=== PATIENT | male | born 1955 | race Caucasian/White ===

== ENCOUNTER 2022-08-25 23:19 | Inpatient (IN) | payer OTHER ==
--- OUTSIDE RECORDS SUMMARY | 2022-08-25 23:23 | XMS REPORT | Continuity of Care Document ---
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 [id number] l .8 2021-10-08 2021-10-08 Outpatient Sudireddy_R VFP VFP [phone] [facility] 05:23:00 05:23:00 [id number] Family Practic e 2021-07-31 2021-07-31 Outpatient Sudireddy_R VFP VFP 415 [id number] [facility] 05:45:00 05:45:00 [id number] Family Practic e 2021-06-12 2021-06-12 Outpatient Sudireddy_R VFP VFP 415 [id number] [facility] 06:36:00 06:36:00 [id number] Family Practic e 2021-05-22 2021-05-22 Fely K Adejumo_K VFP [place] - [id number] 00:00:00 00:00:[facility] [address] [facility]: [id number] Medical - Prac tic OMAR RHODES_EUGENIE_Julia Mosqueda [address] [address] , Ph. 2020-12-20 2020-12-20 Outpatient Adejumo_K VFP VFP [id number] [facility] 11:26:00 11:26:00 [id number] Family Practic e 2020-12-07 2020-12-07 Outpatient Adejumo_K VFP VFP [id number] [facility] 02:30:00 02:30:00 [id number] Family Practic e 2020-11-30 2020-11-30 Outpatient Adejumo_K VFP VFP [id number] [facility] 11:54:00 11:54:00 [id number] Family Practic e 2020-10-26 2020-10-26 Outpatient Adejumo_K VFP VFP [id number] [facility] 06:04:00 06:04:00 [id number] Family Practic e 2020-09-20 2020-09-20 Outpatient Adejumo_K VFP VFP [id number] [place] [id number] 04:07:00 04:07:00 [id number] Family Practic e 2020-08-22 2020-08-22 Outpatient YAYA [facility] [id number] 00:00:00 00:00:00 KAMILA [address]zo[address] [facility] [address] 2020-08-22 2020-08-22 Outpatient YAYA [facility] [id number] 00:00:00 00:00:00 KAMILA [address] 2020-05-19 2020-05-19 Outpatient Adejumo_K VFP VFP [id number] [place] [id number] 01:24:00 01:24:00 [id number] Family Practic e 2020-04-24 2020-04-24 Emergency E CHAUDHARI, FB FB [id number] FB 07:29:00 08:25:00 KERI 2020-02-01 2020-02-01 Appointedson ALMEIDA, [facility] Orthopedics [id number] [place] 14:15:00 14:15:00 t; ANA ALMEIDA, - Sugar Ph Celena [place] 2 POD ans M.DGabbi 2 2020-01-27 2020-01-27 Appointedson ALMEIDA [facility] Orthopedics [id number] [place] 14:15:00 14:15:00 t; ANA ALMEIDA, - Sugar Ph Celena [place] 2 POD ans M.DGabbi 2 2020-01-17 2020-01-17 Outpatient [facility] [id number] Memoria 16:37:32 21:20:00 r [facility] 2020-01-17 2020-01-17 Outpatient nullFlavo [facility] [id number] Memoria 16:37:32 21:20:00 r [facility] 2020-01-17 2020-01-17 Outpatient Erick [id number] 889 10:37:32 15:20:00 Ana 8 2020-01-17 2020-01-17 Outpatient nullFlavo [facility] [id number] Mem[place] 10:37:32 15:20:00 r anjana [place] 2020-01-17 2020-01-17 Outpatient Erick [id number] 10:37:32 15:20:00 Ana 8 2020-01-17 2020-01-17 Outpatient nullFlavo [facility] [id number] [facility] 10:37:32 15:20:00 jeff Wang 2020-01-17 2020-01-17 Leigh ALMEIDA [facility] Orthopedics [id number] [place] 13:00:00 13:00:00 t; ANA ALMEIDA, - Sugar Ph landy PEREZ M.D. [place] 2 POD ans MMarce 2 2019-11-03 2019-11-03 Outpatient VFP [facility] [id number] [facility] 12:49:00 12:49:00 [id number] Family Practic e 2019-11-02 2019-11-02 Abby E VFP [facility] [id number] [facility] 00:00:00 00:00:00 [facility], [facility] [id number] Family PA-C: Medical - Practi c [id number] [facility]_HOU_Suga e [facility] [address], [place] [address] , Ph. 2019-10-28 2019-10-28 [facility] [id number] [place] 13:15:00 13:15:00 t; ANA ALMEIDA, - Sugar Ph Celena Vail 2 POD heydi [place] 2 2019-10-07 2019-10-07 [facility] [id number] [place] 13:45:00 13:45:00 t; PATRIC KOHLI M.D. at [facility] Felipe SPIVEY M.D. [facility] 2019-07-02 2019-07-02 [facility] [id number] [place] 14:15:00 14:15:00 t; VANDANA BRAY, - Sugar Celena Spangler 1 heydi [place] 2018-12-16 2018-12-16 [facility] [id number] [place] 14:45:00 14:45:00 t; VANDANA BRAY, Orthopedic P ankur ROSS M.D. Surgery - heydi [place] [address] 1 2018-10-02 2018-10-02 [facility] [id number] [place] 13:00:00 13:00:00 t; SHIRLEY KLINE Orthopedic Physici VIMAL, [facility] - ans SHIRLEY KLINE [address] 1 2018-08-28 2018-08-28 [facility] ASA, [facility] UTP [id number] [place] 15:00:00 15:00:00 t; VANDANA BRAY Phys ici MATTHEW, M.D. ans M.D. 2018-08-20 2018-08-20 [facility] ASA, UTP UTP [id number] [place] 07:30:00 07:30:00 t; VANDANA BRAY Phys sarika ROSS M.D. ans M.D. 2018-07-20 2018-07-20 [facility] ASA, UTP UTP [id number] [place] 14:30:00 14:30:00 t; VANDANA BRAY Phys ici MATTHEW, M.D. ans M.D. 2018-02-16 2018-02-16 [facility] ASA, UTP UTP [id number] [place] 14:45:00 14:45:00 t; VANDANA BRAY Phys ici MATTHEW, M.D. ans M.D. 2017-10-28 2017-10-28 [facility] ASA, UTP UTP [id number] [place] 15:15:00 15:15:00 t; VANDANA BRAY Phys ici MATTHEW, M.D. ans M.D. 2017-04-15 2017-04-15 [facility] LAVERNE, [facility] UTP [id number] [place] 15:30:00 15:30:00 t; ALONSO GALLOWAY D.O. Physici heydi GUPTA D.OGabbi 2017-03-19 2017-03-19 [facility] ASA, UTP UTP [id number] [place] 15:45:00 15:45:00 t; VANDANA BRAY Phys ici MATTHEW, M.D. ans M.DGabbi 2017-01-15 2017-01-15 [facility] ASA, UTP UTP [id number] [place] 14:00:00 14:00:00 t; VANDANA BRAY Phys sarika ROSS M.D. ans M.DGabbi 2016-09-18 2016-09-18 [facility] SONA, [facility] UTP [id number] [place] 14:00:00 14:00:00 t; Hilda TREVIÑO i, M.D. ans ROBERT, M.D. 2014-08-08 2014-08-08 med nullFlavo Brooke [id number] Memoria 13:45:00 13:45:00 records r doris Collado-41f0mariaelena yeung MD, AGUS [phone] [facility] b0faff 2014-08-08 2014-08-08 med nullFlavo Brooke [id number] Memoria 13:45:00 13:45:00 records doris Thomas-41f0mariaelena yeung MD, AGUS [phone] [facility] b0faff 2014-08-08 2014-08-08 Outpatient Brooke Brooke [id number] eClinic 08:45:00 08:45:00 Tobias Collado al Works MD, AGUS [place], [place] 2014-08-08 2014-08-08 Outpatient Brooke Brooke [id number] eClinic 08:45:00 08:45:00 Tobias Collado al Works MD, AGUS [place], [place] 2014-05-30 2014-05-30 follow up nullFlavo Brooke de21c5 6d-b [facility] 21:00:00 21:00:00 Len Thomas-4da4Eliza yeung MD, AGUS [id number] [facility] 6da1cc 2014-05-30 2014-05-30 follow up nullFlavo Brooke [id number] eb-7 Memoria 21:00:00 21:00:00 kristi Thomas4de4Eliza yeung MD, PA garcia-e631ec [facility] [id number] 9723-07-07 2014-05-30 follow up nullFlavo Brooke de21c5 6d-b Memoria 21:00:00 21:00:00 Len Thomas-4da4Eliza yeung MD, PA [id number] [facility] 6da1cc 2014-05-30 2014-05-30 follow up nullFlavo Brooke 1964c2 eb-7 Memoria 21:00:00 21:00:00 kristi Thomas4de4Eliza yeung MD, PA garcia-e631ec [facility] nn [id number] 5901-07-07 2014-05-30 Outpatient Brooke Brooke [id number] eClinic 16:00:00 16:00:00 Tobias Collado al Works MD, AGUS [place], [place] 2014-05-30 2014-05-30 Outpatient Brooke Brooke [id number] eClinic 16:00:00 16:00:00 Tobias Collado al Works MD, PA , PA Results Test Description Test Time Test Comments Results Result Comments Source Post Op Promis 29 Survey 2020-03-24 15:01:06 Test Item Value Reference Range Interpretation Comme nts Pain Interference: (test code = Pain Interference:) 62.9 1 N Pain Intensity: (test code = Pain Intensity:) 53.7 1 N Physical Function: (test code = Physical Function:) 35.5 1 N Satisfaction Role: (test code = Satisfaction Role:) 44.3 1 N [facility]hoyHBBRDZHLYU7239-41-00 22:12:00 Test Item Value Reference Range Interpretation Comments Results (test code = Reported (01/07/20 4:12 Results) PM) [facility]ZnzsdxpDJUKFPGQRC3020-96-69 22:12:00 Test Item Value Reference Range Interpretation Comments Glucose Lvl (test code = Glucose Lvl) 99 70-99 [facility] CenterAqpaasjCEVEPKQGOR7758-92-42 22:12:00 Test Item Value Reference Range Interpretation Comments BUN (test code = BUN) 19 7-22 [facility] CenterYqnyvxuAYBWWKUDDR0407-90-48 22:12:00 Test Item Value Reference Range Interpretation Comments Creatinine (test code = Creatinine) 1.02 0.50-1.40 [facility] CenterSwhywnhUDHDOOATYO7144-71-06 22:12:00 Test Item Value Reference Range Interpretation Comments Sodium Level (test code = Sodium Level) 139 135-145 [facility] CenterHnzbinfXYTGAKXIPA4079-07-93 22:12:00 Test Item Value Reference Range Interpretation Comments Potassium Level (test code = Potassium 4.6 3.5-5.1 Level) [facility] CenterMiprdmbJAVQGJIGZF1601-30-17 22:12:00 Test Item Value Reference Range Interpretation Comments Chloride Level (test code = Chloride 106 95-109 Level) [facility] CenterGgeorstERIWBCYMAY4364-10-78 22:12:00 Test Item Value Reference Range Interpretation Comments Carbon Dioxide Level (test code = 28 24-32 Carbon Dioxide Level) [facility] CenterGppswaaQYPKPLADSW5222-33-75 22:12:00 Test Item Value Reference Range Interpretation Comments AGAP (test code = AGAP) 9.6 10.0-20.0 [place] 146760-02-14 22:12:00 Test Item Value Reference Range Interpretation Comments Calcium Level (test code = Calcium 9.1 8.5-10.5 Level) [facility] CenterZesjqnjUQQANJZKWS5232-02-51 22:12:00 Test Item Value Reference Range Interpretation Comments eGFR (test code = eGFR) 76 [facility] CenterQmtdvfeMGKDQKGVNM3522-23-27 22:12:00 Test Item Value Reference Range Interpretation Comments Results (test code = Reported (01/07/20 4:12 Results) PM) [place] 146760-02-14 22:12:00 Test Item Value Reference Range Interpretation Comments White Blood Count (test code = White 5.7 3.7-10.4 Blood Count) [facility] CenterWwcjrgpMJGELDYLGO4682-59-34 22:12:00 Test Item Value Reference Range Interpretation Comments Red Blood Cell Count (test code = Red 3.99 4.70-6.10 Blood Cell Count) [facility] CenterUiprcbgYRMJDZOPBE1882-91-46 22:12:00 Test Item Value Reference Range Interpretation Comments Hemoglobin (test code = Hemoglobin) 11.9 14.0-18.0 [facility] CenterYkklrfrLGJSHOZROY8864-70-60 22:12:00 Test Item Value Reference Range Interpretation Comments Hematocrit (test code = Hematocrit) 34.6 42.0-54.0 [place] 146760-02-14 22:12:00 Test Item Value Reference Range Interpretation Comments MCV (test code = MCV) 86.8 80.0-94.0 [place] [address]-02-14 22:12:00 Test Item Value Reference Range Interpretation Comments MCH (test code = MCH) 29.7 pg 27.0-31.0 [place] [address]-02-14 22:12:00 Test Item Value Reference Range Interpretation Comments MCHC (test code = MCHC) 34.3 32.0-36.0 [place] 146760-02-14 22:12:00 Test Item Value Reference Range Interpretation Comments RDW (test code = RDW) 15.9 11.5-14.5 [facility] CenterYupnnlkSUMQHYABDB5725-51-79 22:12:00 Test Item Value Reference Range Interpretation Comments Platelet (test code = Platelet) 214 133-450 [facility] CenterLndtldhAOMXPHZRYC8460-22-28 22:12:00 Test Item Value Reference Range Interpretation Comments MPV (test code = MPV) 8.3 7.4-10.4 [facility] CenterShhxkxjUMVZNVNIMS4657-34-20 22:12:00 Test Item Value Reference Range Interpretation Comments Results (test code = Reported (01/07/20 4:12 Results) PM) [facility] CenterRelxzonLJUNXVSRMG4625-80-59 22:12:00 Test Item Value Reference Range Interpretation Comments Neutrophil % (test code = Neutrophil %) 60.8 45.0-75.0 [facility] CenterNzisqxsDEEJQHLRPG1529-67-02 22:12:00 Test Item Value Reference Range Interpretation Comments Monocyte % (test code = Monocyte %) 9.2 2.0-12.0 [facility] CenterPsgihkuJBQYZUVQRP4992-55-45 22:12:00 Test Item Value Reference Range Interpretation Comments Lymphocyte % (test code = Lymphocyte %) 25.6 20.0-40.0 [facility] CenterEmsttmwJXPQBZMHIJ3731-30-01 22:12:00 Test Item Value Reference Range Interpretation Comments Eosinophil # (test code 3.8 See_Comment [Au tomated message] The = Eosinophil #) system which generated this result tra nsmitted reference range : <=4.0. The reference r gary was not used to int erpret this result as normal/abnormal . [facility] CenterFawwabhRTPGZBRTMY8527-16-81 22:12:00 Test Item Value Reference Range Interpretation Comments Basophil % (test code = 0.6 See_Comment [Au tomated message] The Basophil %) system which ge nerated this result tra nsmitted reference range : <=1.0. The reference r gary was not used to int erpret this result as normal/abnormal . [facility] CenterJglddxiINPOLCVAGK1647-77-26 22:12:00 Test Item Value Reference Range Interpretation Comments Neutrophil # (test code = Neutrophil #) 3.4 1.5-8.1 [facility] CenterAuxrspiNFOIMPUYEX6810-79-55 22:12:00 Test Item Value Reference Range Interpretation Comments Lymphocyte # (test code = Lymphocyte #) 1.4 1.0-5.5 [facility] CenterYkssjgyPWSXWLTSAR6673-42-26 22:12:00 Test Item Value Reference Range Interpretation Comments Monocyte # (test code = 0.5 See_Comment [Au tomated message] The Monocyte #) system which ge nerated this result tra nsmitted reference range : <=0.8. The reference r gary was not used to int erpret this result as normal/abnormal . [facility] CenterOntdqijODLMMYPUYA0541-09-86 22:12:00 Test Item Value Reference Range Interpretation Comments Eosinophil % (test code 0.2 See_Comment [Au tomated message] The = Eosinophil %) system which generated this result tra nsmitted reference range : <=0.5. The reference r gary was not used to int erpret this result as normal/abnormal . [facility] CenterQyzhtvuFJLCBVGLLG4099-21-85 22:12:00 Test Item Value Reference Range Interpretation Comments Results (test code = Reported (01/07/20 4:12 Results) PM) [facility] CenterQsoosafDECOZLNNBB9782-28-60 22:12:00 Test Item Value Reference Range Interpretation Comments Glucose Lvl (test code = Glucose Lvl) 99 70-99 [facility] CenterWwjetfoFQDIKTZBSR6925-32-61 22:12:00 Test Item Value Reference Range Interpretation Comments BUN (test code = BUN) 19 7-22 [facility] CenterMrygchhJINAMIAISA5864-99-16 22:12:00 Test Item Value Reference Range Interpretation Comments Creatinine (test code = Creatinine) 1.02 0.50-1.40 [facility] CenterKuhrmquDVGOKROOGL2000-95-90 22:12:00 Test Item Value Reference Range Interpretation Comments Sodium Level (test code = Sodium Level) 139 135-145 [facility] CenterNmlpvtvQLQVURPLTR1701-26-40 22:12:00 Test Item Value Reference Range Interpretation Comments Potassium Level (test code = Potassium 4.6 3.5-5.1 Level) [facility] CenterGpbteonWZWWXFXUUZ2518-19-74 22:12:00 Test Item Value Reference Range Interpretation Comments Chloride Level (test code = Chloride 106 95-109 Level) [facility] CenterOzpzbviPYTJUBSCHE9153-86-81 22:12:00 Test Item Value Reference Range Interpretation Comments Carbon Dioxide Level (test code = 28 24-32 Carbon Dioxide Level) [facility] CenterJnvqkmrJRFGKGJFEE1730-86-40 22:12:00 Test Item Value Reference Range Interpretation Comments AGAP (test code = AGAP) 9.6 10.0-20.0 [facility] CenterZwnruskXQAJPPCFAI5755-84-67 22:12:00 Test Item Value Reference Range Interpretation Comments Calcium Level (test code = Calcium 9.1 8.5-10.5 Level) [facility] CenterSbzlrevTJKBQQSGYO4651-91-22 22:12:00 Test Item Value Reference Range Interpretation Comments eGFR (test code = eGFR) 76 [facility] CenterVpzvmguWBNKIOZIDZ8860-14-06 22:12:00 Test Item Value Reference Range Interpretation Comments Results (test code = Reported (01/07/20 4:12 Results) PM) [place] 146760-02-14 22:12:00 Test Item Value Reference Range Interpretation Comments White Blood Count (test code = White 5.7 3.7-10.4 Blood Count) [facility] CenterPnbfswoQNQNNLUNUT6389-07-91 22:12:00 Test Item Value Reference Range Interpretation Comments Red Blood Cell Count (test code = Red 3.99 4.70-6.10 Blood Cell Count) [facility] CenterBiwfogvRLURJTWPGQ3243-56-63 22:12:00 Test Item Value Reference Range Interpretation Comments Hemoglobin (test code = Hemoglobin) 11.9 14.0-18.0 [facility] CenterMlacdpxCNDDSHLOOT7203-32-46 22:12:00 Test Item Value Reference Range Interpretation Comments Hematocrit (test code = Hematocrit) 34.6 42.0-54.0 [facility] CenterVpwqifjLYZQRKJTVS1992-38-31 22:12:00 Test Item Value Reference Range Interpretation Comments MCV (test code = MCV) 86.8 80.0-94.0 [place] 146760-02-14 22:12:00 Test Item Value Reference Range Interpretation Comments MCH (test code = MCH) 29.7 pg 27.0-31.0 [place] 146760-02-14 22:12:00 Test Item Value Reference Range Interpretation Comments MCHC (test code = MCHC) 34.3 32.0-36.0 [facility] CenterKoffoxxBDVOVXEJTE9452-02-28 22:12:00 Test Item Value Reference Range Interpretation Comments RDW (test code = RDW) 15.9 11.5-14.5 [facility] CenterVxwhosrLFNFDQPJLA0207-56-10 22:12:00 Test Item Value Reference Range Interpretation Comments Platelet (test code = Platelet) 214 133-450 [facility] CenterVrbbnomQUXJMRKUCU6204-12-28 22:12:00 Test Item Value Reference Range Interpretation Comments MPV (test code = MPV) 8.3 7.4-10.4 [facility] CenterPmoemgeMGNQKGIHYV2200-94-09 22:12:00 Test Item Value Reference Range Interpretation Comments Results (test code = Reported (01/07/20 4:12 Results) PM) [facility] CenterDhvhdomOFWANNNRVB2446-12-67 22:12:00 Test Item Value Reference Range Interpretation Comments Neutrophil % (test code = Neutrophil %) 60.8 45.0-75.0 [facility] CenterLypmboqSRCSCKAVPF5056-58-02 22:12:00 Test Item Value Reference Range Interpretation Comments Monocyte % (test code = Monocyte %) 9.2 2.0-12.0 [facility] CenterKqnyebkZRCOJUHWGX3234-83-63 22:12:00 Test Item Value Reference Range Interpretation Comments Lymphocyte % (test code = Lymphocyte %) 25.6 20.0-40.0 [facility] CenterMfdufowHQSSHRTWRD9197-45-63 22:12:00 Test Item Value Reference Range Interpretation Comments Eosinophil # (test code 3.8 See_Comment [Au tomated message] The = Eosinophil #) system which generated this result tra nsmitted reference range : <=4.0. The reference r gary was not used to int erpret this result as normal/abnormal . [facility] CenterVcrjevpQQAAZUBQTJ8667-96-41 22:12:00 Test Item Value Reference Range Interpretation Comments Basophil % (test code = 0.6 See_Comment [Au tomated message] The Basophil %) system which ge nerated this result tra nsmitted reference range : <=1.0. The reference r gary was not used to int erpret this result as normal/abnormal . [facility] CenterMkofsnrDEMTIEZQIL3940-76-42 22:12:00 Test Item Value Reference Range Interpretation Comments Neutrophil # (test code = Neutrophil #) 3.4 1.5-8.1 [facility] CenterPzmalhlAHUDQHDCYR7155-11-89 22:12:00 Test Item Value Reference Range Interpretation Comments Lymphocyte # (test code = Lymphocyte #) 1.4 1.0-5.5 [facility] CenterObvokueSRBQVNJDBF3772-43-61 22:12:00 Test Item Value Reference Range Interpretation Comments Monocyte # (test code = 0.5 See_Comment [Au tomated message] The Monocyte #) system which ge nerated this result tra nsmitted reference range : <=0.8. The reference r gary was not used to int erpret this result as normal/abnormal . [facility] CenterPkufgvwVSCICQGTPJ8769-22-46 22:12:00 Test Item Value Reference Range Interpretation Comments Eosinophil % (test code 0.2 See_Comment [Au tomated message] The = Eosinophil %) system which generated this result tra nsmitted reference range : <=0.5. The reference r gary was not used to int erpret this result as normal/abnormal . [facility]
[2022-08-26] MEDS ORDERED: IBUPROFEN 400 MG TAB ONE (00:14)
[2022-08-26 00:31] LABS: Absolute Lymphocytes (CBC) 1.3 K/uL (0.7-4.9); Hematocrit 26.3 % (39.6-49.0); Lymphocytes % 13.2 % (15.3-44.8); MCV 68.4 fL (80-100); MPV 7.6 fL (7.6-11.3); RBC Red Blood Cell Count 3.85 M/uL (4.33-5.43)
[2022-08-26 00:43] LABS: Potassium 4.1 mmol/L (3.5-5.1)
[2022-08-26] MEDS ORDERED: MORPHINE 4 MG/ML SYR ONE ×3 (01:19→01:58)
[2022-08-26] MEDS ORDERED: ONDANSETRON 4 MG/2 ML VIAL ONE (01:19)
[2022-08-26 01:34] LABS: Blood Morphology Comment NOTED (NOT SEEN); White Blood Cell Scan OK (OK)
[2022-08-26 01:35] LABS: Hypochromasia 1+; Platelet Estimate ADEQ
[2022-08-26] MEDS ORDERED: LORazepam 2 MG/ML VIAL ONE ×2 (02:36→02:55)
[2022-08-26] MEDS ORDERED: FENTANYL CITR 100 MCG/2 ML ONE (02:55)
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
[2022-08-26] MEDS ORDERED: HYDROMORPHONE HCL 1 MG/ML INJ IV PRN (05:10)
[2022-08-26] MEDS ORDERED: ACETAMINOPHEN 500 MG TAB PO PRN (05:10)
[2022-08-26] MEDS ORDERED: ONDANSETRON 4 MG/2 ML VIAL IV PRN (05:10)
[2022-08-26 05:37] LABS: SARS-CoV-2 Antigen Rapid Res Negative (Negative)
[2022-08-26] MEDS ORDERED: NA CHLORIDE 0.9% 1,000 ML ONE (05:41)
[2022-08-26] MEDS ORDERED: D5 0.45 NS 1,000 ML IV ONE (05:42)
[2022-08-26] MEDS ORDERED: NA CHLORIDE 0.9% 1,000 ML IV SCH (06:00)
[2022-08-26] MEDS ORDERED: D5 0.45 NS 1,000 ML IV SCH (06:00)
[2022-08-26] MEDS ORDERED: TETANUS & DIPHTHERIA TOX,ADULT 0.5 ML VIAL ONE (07:29)
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
[2022-08-26 10:43] VITALS: BMI 24.9
[2022-08-26 11:21] VITALS: TEMP 97.4
[2022-08-26 11:22] VITALS: BP 144/86
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
--- NOTE | 2022-08-26 13:32 | RAD REPORT ---
EXAM DESCRIPTION: Hand Right 3 View 08/26/2022 1:42 AM CDT CLINICAL HISTORY: 67 years, Male, PAIN COMPARISON: None. FINDINGS: 3 X-ray views of the right hand (Frontal, lateral and oblique views) were performed. No acute bony injuries were demonstrated.. There are no gross intraosseous lesions. No periosteal reaction were seen. Significant degenerative changes are noted within the metacarpophalangeal join t. Minimal degenerative changes are seen within the DIP joints findings are most likely related to os teoarthritis. Carpal bones demonstrate to be within normal limits. IMPRESSION: No acute bony injuries were demonstrated. Osteoarthritis. Electronically signed by: Claudio Bach MD 08/26/2022 1:43 AM CDT Due to temporary technical issues with the PACS/Fluency reporting system, reports are being signed by the in house radiologists without review as a courtesy to insure prompt reporting. The interpreting radiologist is fully responsible for the content of the report.
[2022-08-27 00:35] VITALS: O2SAT 96
== END 2022-08-26 10:57 | disposition short-term general hospital (02) | DRG 185 ==
LOC: ER 23:19 → ERHOLD 08-26 05:15
PROVIDERS: ADMIT Surgery; ATTEND Surgery
DX: S22.42XA Multiple fractures of ribs, left side, initial encounter for closed fracture (principal); Y92.410 Unspecified street and highway as the place of occurrence of the external cause; H57.89 Other specified disorders of eye and adnexa; S50.312A Abrasion of left elbow, initial encounter; Z20.822 Contact with and (suspected) exposure to COVID-19
CPT/HCPCS: 36415; 70450; 71045; 71250; 72125; 80048; 85025; 86850; 86900; 86901; 87811; 90471; 90714; 99285; J2405; J3010; J7030; J7799

== ENCOUNTER 2024-09-22 10:44 | Emergency (ER) | payer MEDICAID, OTHER, SELFPAY ==
[2024-09-22 11:46] LABS: Absolute Eosinophils 0.3 K/uL (0-0.5); Absolute Lymphocytes (CBC) 1.6 K/uL (0.7-4.9); Absolute Monocytes 0.6 K/uL (0.1-1.3); Absolute Neutrophil 4.9 K/uL (1.8-8.0); Basophils % 0.7 % (0-1.3); Eosinophils % 4.6 % (0-4.4); Hematocrit 32.7 % (39.6-49.0); Hemoglobin 9.7 g/dL (13.6-17.9); Lymphocytes % 20.8 % (15.3-44.8); MCH 23.1 pg (27.0-35.0); MCHC 29.7 g/dL (32.0-36.0); MCV 77.8 fL (80-100); MPV 7.4 fL (7.6-11.3); Monocytes % 8.4 % (3.3-12.3); Neutrophils % 65.5 % (41.7-73.7); Platelets 391 thou/uL (152-406); Red Cell Distribution Width 22.7 % (12.1-15.2)
[2024-09-22] MEDS ORDERED: PANTOPRAZOLE 40 MG INJ ONE (11:46)
[2024-09-22] MEDS ORDERED: PANTOPRAZOLE INJ 80 MG in NA CHLORIDE 0.9% 250 ML IV SCH (12:00)
[2024-09-22 12:06] LABS: Percent Reticulocyte Count 1.72 % (0.4-2.05)
[2024-09-22 12:10] LABS: PT Prothrombin Time 13.3 SECONDS (9.4-12.5); PTT, Activated Partial Thromb 39.7 SECONDS (24.3-36.9); Protime INR 1.19
[2024-09-22 12:27] LABS: Albumin 3.3 g/dL (3.4-5.0); Albumin/Globulin Ratio 0.7 (1.1-1.8); Anion Gap 8.5 mEq/L (5.0-15.0); Bilirubin Total 0.2 mg/dL (0.2-1.0); Ferritin 51.7 ng/mL (26-388); Globulin 4.6 g/dL (2.3-3.5); Potassium 4.5 mEq/L (3.5-5.1); Protein, Total 7.9 g/dL (6.4-8.2)
--- NOTE | 2024-09-22 12:55 | RAD REPORT ---
EXAMINATION: CT ABDOMEN AND PELVIS WITH CONTRAST CLINICAL INDICATION: melena TECHNIQUE: CT abdomen and pelvis was performed, after the administration of IV contrast, as per [facility] protocol. Axial, sagittal and coronal reconstructions were obtained. One or more of the following dose reduction techniques were used: Automated exposure control, adjustment of the mA and k V according to patient size, and iterative reconstruction. Unless otherwise specified, incidental findings do not require dedicated imaging follow-up. COMPARISON: No prior exam. FINDINGS: LOWER CHEST: The visualized lung bases are clear. LIVER: Normal in size and contour. No focal lesion. Grossly unremarkable gallbladder. SPLEEN: Normal size. No focal lesion. PANCREAS: No mass, ductal dilation, or drew-pancreatic fluid. ADRENALS: Normal; no mass. KIDNEYS: Normal size and contour. No hydronephrosis. GASTROINTESTINAL TRACT: No evidence of free air, significant intra-abdominal free fluid, bowel obstru ction or abscess. APPENDIX: Normal appendix. LYMPH NODES: No lymphadenopathy. MUSCULOSKELETAL: Moderate multilevel spinal degenerative changes. ADDITIONAL FINDINGS: None. IMPRESSION: No acute or concerning abnormalities seen in the abdomen or pelvis.
--- NOTE | 2024-09-22 13:30 | EDPHYS ---
Physician Documentation [facility] Name: Maikel Aranda Jr Age: 69 yrs Sex: Male : 1955 Arrival Date: 09/22/2024 Time: 10:44 Bed 14 Private MD: ED Physician Christofer Foster HPI: 09/22 12:50 This 69 yrs old Male presents to ER via Ambulatory with complaints of Doesn't Feel rn Right - LOSING BLOOD. 12:50 The patient presents to the emergency department with rectal bleeding, a small amount, rn melena, with multiple such episodes. Onset: The symptoms/episode began/occurred 2 week(s) ago. Abdominal pain: none is appreciated. Associated signs and symptoms: Pertinent positives: dizziness when standing, shortness of breath, Pertinent negatives: fever, syncope. Severity of symptoms: At their worst the symptoms were mild in the emergency department the symptoms are unchanged. The patient has experienced similar episodes in the past. Patient reports dark black stool for the last 2 weeks. No fever or chills. Does report shortness of breath with exertion and malaise lately. Does not take blood thinners. Has had GI bleed 2 years ago but never followed up for further testing. Also reports takes a lot of Aleve daily for the last few months.. Historical: - Allergies: 11:12 No Known Allergies; ll1 - Home Meds: 11:15 Hydrocodone-Acetaminophen Oral [Active]; cm10 - PMHx: 11:15 None; cm10 - Immunization history:: Adult Immunizations up to date. - Infectious Disease History:: Denies. - Social history:: Smoking status: Patient reports the use of cigarette tobacco products, denies chronic smoking, but will smoke occasionally. - Family history:: not pertinent. - Hospitalizations: : No recent hospitalization is reported. ROS: 12:50 Constitutional: Negative for fever, chills, and weight loss, Cardiovascular: Negative rn for chest pain, palpitations, and edema, Respiratory: Negative for shortness of breath, cough, wheezing, and pleuritic chest pain, Abdomen/GI: Negative for abdominal pain, positive for dark black stool MS/Extremity: Negative for injury and deformity, Skin: Negative for injury, rash, and discoloration, Neuro: Negative for headache, numbness, tingling, and seizure, Exam: 12:50 Constitutional: This is a well developed, well nourished patient who is awake, alert, rn and in no acute distress. Eyes: Mildly pale conjunctiva Cardiovascular: Regular rate and rhythm. No pulse deficits. Respiratory: No increased work of breathing, no retractions or nasal flaring. Abdomen/GI: Soft, nontender Neuro: Awake and alert, GCS 15 17:28 ECG was reviewed by the Attending Physician. rn Vital Signs: 11:12 BP 145 / 75; Pulse 71; Resp 16; Temp 98(TE); Pulse Ox 100% ; Weight 77.11 kg; Height 5 cm10 ft. 9 in. ; Pain 0/10; 12:22 BP 150 / 74; Pulse 64; Resp 16 S; Pulse Ox 96% on R/A; kc6 15:51 BP 152 / 84; Pulse 78; Resp 18 S; Pulse Ox 96% on R/A; Pain 8/10; kc6 16:20 BP 142 / 81; Pulse 74; Resp 17; Pulse Ox 97% ; me1 17:00 BP 133 / 76; Pulse 76; Resp 16; Pulse Ox 96% ; me1 18:00 BP 160 / 87; Pulse 82; Resp 16; Temp 98.4; Pulse Ox 100% ; me1 11:12 Body Mass Index 25.10 (77.11 kg, 175.26 cm) cm10 11:12 Pain Scale: Adult cm10 15:51 Pain Scale: Adult kc6 MDM: 11:04 Medical Screening Exam initiated rn 13:12 Differential diagnosis: gastritis, varices, Upper GI bleed, melena. Data reviewed: rn vital signs, nurses notes, lab test result(s), radiologic studies. 13:29 Counseling: I had a detailed discussion with the patient and/or guardian regarding the rn historical points, exam findings, and any diagnostic results supporting the discharge/admit diagnosis, lab results, radiology results, the need for further work-up and treatment in the hospital, the need to transfer to another facility, for higher level of care, [facility] does not immediately have the required specialist. 09/22 11:20 Order name: CBC with Diff; Complete Time: 14:50 rn 09/22 11:20 Order name: CMP; Complete Time: 12:34 rn 09/22 11:20 Order name: Lipase; Complete Time: 12:34 rn 09/22 11:20 Order name: Type And Screen; Complete Time: 12:34 rn 09/22 11:20 Order name: Protime (+inr); Complete Time: 12:34 rn 09/22 11:20 Order name: Ptt, Activated; Complete Time: 12:34 rn 09/22 11:20 Order name: B12; Complete Time: 12:34 rn 09/22 11:20 Order name: Ferritin; Complete Time: 12:34 rn 09/22 11:20 Order name: Retic Count; Complete Time: 14:50 rn 09/22 13:33 Order name: Manual Differential; Complete Time: 14:50 EDMS 09/22 11:20 Order name: CT Abd/Pelvis - IV Contrast Only; Complete Time: 13:03 rn 09/22 11:20 Order name: IV Saline Lock; Complete Time: 11:40 rn 09/22 11:20 Order name: Labs collected and sent; Complete Time: 11:40 rn 09/22 11:20 Order name: Cardiac monitoring; Complete Time: 11:40 rn 09/22 11:20 Order name: O2; Complete Time: 11:40 rn EC:28 Rate is 65 beats/min. Rhythm is regular. QRS [place] is Normal. CT interval is normal. QRS rn interval is normal. QT interval is normal. No Q waves. T waves are Normal. No ST changes noted. Clinical impression: Normal ECG. Interpreted by me. Reviewed by me. Administered Medications: 11:56 Drug: Pantoprazole IVP 40 mg IVP once Route: IVP; Site: right antecubital; [facility] 12:20 Follow up: Response: No adverse reaction [facility] 12:20 Drug: Pantoprazole IV 8 mg/hr IV at 25 ml/hr continuous; (Standard dilution is 80 mg in kc6 250 mL NS) Route: IV; Rate: 25 ml/hr; Site: right antecubital; 17:04 Follow up: IV Status: Infusion continued upon transfer me1 15:29 Drug: morphine IVP or IV 2 mg IVP once over 4 mins Route: IVP; Infused Over: 4 mins; 6 Site: right antecubital; 16:00 Follow up: Response: No adverse reaction; Pain is decreased ne1 Disposition Summary: 09/22/24 13:30 Transfer Ordered Notes: Transfer Location: [facility] rn Reason: Higher level of care rn Condition: Stable rn Problem: an ongoing problem rn Symptoms: are unchanged rn Accepting Physician: (09/22/24 18:23) me1 Diagnosis - Melena rn - Anemia, unspecified rn Forms: - Medication Reconciliation Form rn - SBAR form rn Signatures: Dispatcher [employer] EDSD Christofer Foster MD MD rn Lewis, Lynsay RN RN ll1 Neda Sarabia RN RN kc6 Lamar Owens RN RN cm10 Kylie Calles RN RN me1 Corrections: (The following items were deleted from the chart) 11: 11:21 CBC+H.LAB.BRZ ordered. EDMS EDMS 11:21 11:21 COMPREHENSIVE METABOLIC PANEL+C.LAB.BRZ ordered. EDMS EDMS 11:21 11:21 LIPASE+C.LAB.BRZ ordered. EDMS EDMS 11:21 11:21 TYPE AND SCREEN+BB.LAB.BRZ ordered. EDMS EDMS 11:21 11:21 PROTIME (+INR)+COAG.LAB.BRZ ordered. EDMS EDMS 11:21 11:21 PTT, ACTIVATED+COAG.LAB.BRZ ordered. EDMS EDMS 11:21 11:21 VITAMIN B12+C.LAB.BRZ ordered. EDMS EDMS 11:21 11:21 FERRITIN+C.LAB.BRZ ordered. EDMS EDMS 11:21 11:21 FERRITIN+C.LAB.BRZ ordered. EDMS EDMS 11:21 11:21 RETIC COUNT+H.LAB.BRZ ordered. EDMS EDMS 11:21 11:21 Abdomen Pelvis W Con+CT.RAD.BRZ ordered. EDMS EDMS 18:23 13:30 rn me1
--- NOTE | 2024-09-22 13:30 | ER ---
Nurse's Notes [facility] Name: Maikel Aranda Jr Age: 69 yrs Sex: Male : 1955 Arrival Date: 09/22/2024 Time: 10:44 Bed 14 Private MD: Diagnosis: Melena;Anemia, unspecified Presentation: 09/22 11:12 Chief complaint: Patient states: Black tarry stools that have been getting worse this cm10 last week. Pt reports shortness of breath and feeling more fatigued. Coronavirus screen: Client denies travel out of the [place] in the last 14 days. Ebola Screen: Patient denies travel to an Ebola-affected area in the 21 days before illness onset. Initial Sepsis Screen: Does the patient meet any 2 criteria? No. Patient's initial sepsis screen is negative. Does the patient have a suspected source of infection? No. Patient's initial sepsis screen is negative. Risk Assessment: Do you want to hurt yourself or someone else? Patient reports no desire to harm self or others. Onset of symptoms was September 22, 2024. 11:12 Method Of Arrival: Ambulatory cm10 11:12 Acuity: DUSTIN 3 cm10 Triage Assessment: 11:16 General: Appears in no apparent distress. comfortable, Behavior is calm, cooperative. cm10 Neuro: No deficits noted. Level of Consciousness is awake, alert, obeys commands, Oriented to person, place, time, situation, Appropriate for age. Respiratory: No deficits noted. Airway is patent Respiratory effort is even, unlabored, Respiratory pattern is regular, symmetrical. Historical: - Allergies: 11:12 No Known Allergies; ll1 - Home Meds: 11:15 Hydrocodone-Acetaminophen Oral [Active]; cm10 - PMHx: 11:15 None; cm10 - Immunization history:: Adult Immunizations up to date. - Infectious Disease History:: Denies. - Social history:: Smoking status: Patient reports the use of cigarette tobacco products, denies chronic smoking, but will smoke occasionally. - Family history:: not pertinent. - Hospitalizations: : No recent hospitalization is reported. Screenin:25 [facility] ED Fall Risk Assessment (Adult) History of falling in the last 3 months, kc6 including since admission No falls in past 3 months (0 pts) Confusion or Disorientation No (0 pts) Intoxicated or Sedated No (0 pts) Impaired Gait No (0 pts) Mobility Assist Device Used No (0 pt) Altered Elimination No (0 pt) Score/Fall Risk Level 0 - 2 = Low Risk Oriented to surroundings. Abuse screen: Denies threats or abuse. Denies injuries from another. Nutritional screening: No deficits noted. Tuberculosis screening: No symptoms or risk factors identified. Assessment: 11:24 General: Appears in no apparent distress. comfortable, well groomed, well developed, kc6 Behavior is calm, cooperative, appropriate for age. Pain: Denies pain. Neuro: Level of Consciousness is awake, alert, obeys commands, Oriented to person, place, time, situation, Appropriate for age. Cardiovascular: Denies chest pain, Capillary refill < 3 seconds. Respiratory: Reports shortness of breath on exertion Airway is patent Trachea midline Respiratory effort is even, unlabored, Respiratory pattern is regular, symmetrical. GI: Abdomen is round non-distended, Reports bloody stool, Patient currently denies abdominal pain, constipation, diarrhea, nausea, vomiting. : No signs and/or symptoms were reported regarding the genitourinary system. EENT: No signs and/or symptoms were reported regarding the EENT system. Derm: Skin is intact, is healthy with good turgor, Skin is dry, Skin is pale, Skin temperature is warm. Musculoskeletal: No signs and/or symptoms reported regarding the musculoskeletal system. Circulation, motion, and sensation intact. Capillary refill < 3 seconds, Range of motion: intact in all extremities. 12:21 Reassessment: Patient appears in no apparent distress at this time. No changes from kc6 previously documented assessment. Patient and/or family updated on plan of care and expected duration. Pain level reassessed. Patient is alert, oriented x 3, equal unlabored respirations, skin warm/dry/pink. 13:19 Reassessment: Patient appears in no apparent distress at this time. No changes from kc6 previously documented assessment. Patient and/or family updated on plan of care and expected duration. Pain level reassessed. Patient is alert, oriented x 3, equal unlabored respirations, skin warm/dry/pink. 14:19 Reassessment: Patient appears in no apparent distress at this time. No changes from kc6 previously documented assessment. Patient and/or family updated on plan of care and expected duration. Pain level reassessed. Patient is alert, oriented x 3, equal unlabored respirations, skin warm/dry/pink. 15:51 Reassessment: Patient appears in no apparent distress at this time. No changes from kc6 previously documented assessment. Patient and/or family updated on plan of care and expected duration. Pain level reassessed. Patient is alert, oriented x 3, equal unlabored respirations, skin warm/dry/pink. 17:33 General: Report called to HERBER Reinoso at [facility]. . me1 Vital Signs: 11:12 BP 145 / 75; Pulse 71; Resp 16; Temp 98(TE); Pulse Ox 100% ; Weight 77.11 kg; Height 5 cm10 ft. 9 in. ; Pain 0/10; 12:22 BP 150 / 74; Pulse 64; Resp 16 S; Pulse Ox 96% on R/A; kc6 15:51 BP 152 / 84; Pulse 78; Resp 18 S; Pulse Ox 96% on R/A; Pain 8/10; kc6 16:20 BP 142 / 81; Pulse 74; Resp 17; Pulse Ox 97% ; me1 17:00 BP 133 / 76; Pulse 76; Resp 16; Pulse Ox 96% ; me1 18:00 BP 160 / 87; Pulse 82; Resp 16; Temp 98.4; Pulse Ox 100% ; me1 11:12 Body Mass Index 25.10 (77.11 kg, 175.26 cm) cm10 11:12 Pain Scale: Adult cm10 15:51 Pain Scale: Adult kc6 ED Course: 11:01 Patient arrived in ED. mg5 11:04 Christofer Foster MD is Attending Physician. rn 11:12 Arm band placed on Patient placed in an exam room, on a stretcher. ll1 11:14 Neda Sarabia, HERBER is Primary Nurse. kc6 11:15 Triage completed. cm10 11:25 Patient has correct armband on for positive identification. Placed in gown. Bed in low kc6 position. Call light in reach. Side rails up X 1. athletic monitor on. Pulse ox on. NIBP on. Door closed. Noise minimized. Lights dimmed. Warm blanket given. Pillow given. 11:25 Patient maintains SpO2 saturation greater than 95% on room air. kc6 11:40 Inserted saline lock: 20 gauge in right antecubital area, using aseptic technique. kc6 Blood collected. Flushed with 10 mL NS. 12:43 CT Abd/Pelvis - IV Contrast Only In Process Unspecified. EDMS 14:22 Inserted saline lock: 20 gauge in right forearm, using aseptic technique. Flushed with kc6 10 mL NS. 15:16 Patient requests food. Patient requests liquids. Patient requests pain medication. kc6 15:16 Diet: Patient is NPO. [facility] 16:09 transfer intiated by janna Ma accepted in transfer to [facility] rm [id number] Noel admin approval given by Venita Diego. 18:19 No provider procedures requiring assistance completed. Patient transferred, IV remains me1 in place. 18:20 Provided Education on: need for transfer, verbalized understanding.. me1 Administered Medications: 11:56 Drug: Pantoprazole IVP 40 mg IVP once Route: IVP; Site: right antecubital; [facility] 12:20 Follow up: Response: No adverse reaction [facility] 12:20 Drug: Pantoprazole IV 8 mg/hr IV at 25 ml/hr continuous; (Standard dilution is 80 mg in kc6 250 mL NS) Route: IV; Rate: 25 ml/hr; Site: right antecubital; 17:04 Follow up: IV Status: Infusion continued upon transfer me1 15:29 Drug: morphine IVP or IV 2 mg IVP once over 4 mins Route: IVP; Infused Over: 4 mins; [facility] Site: right antecubital; 16:00 Follow up: Response: No adverse reaction; Pain is decreased me1 Medication: 18:20 VIS not applicable for this client. me1 Outcome: 13:30 ER care complete, transfer ordered by . rn 18:19 Transferred by ground EMS to [facility], Transfer form completed. me1 Note: manager critical care unit 18:19 Condition: stable 18:19 Instructed on the need for transfer, 18:23 Patient left the ED. me1 Signatures: Dispatcher [employer] EDMS Clare Combs Roman, MD MD rn Lewis, Lynsay, RN RN [email or web address] Neda Sarabia RN RN kc6 Lamar Owens RN RN 10 Kylie Calles RN RN md1 Melanie Call mg5
[2024-09-22 13:33] LABS: Blood Morphology Comment NOT SEEN (NOT SEEN); Differential Total Cells Count 100; Eosinophils 4 % (0-3); Lymphocytes 27 % (15-42); Monocytes 4 % (0-10); Platelet Estimate ADEQ; Segmented Neutrophils 64 % (40-80)
[2024-09-22] MEDS ORDERED: MORPHINE 2 MG/ML SYR ONE (15:25)
[2024-09-22 19:12] VITALS: BP 160/87; TEMP 98.4; O2SAT 100
--- NOTE | 2024-09-27 12:27 | EKG ---
Test Date: 2024-09-22 Test Time: 11:28:44 Physician Practice Consultant: DOV MEASUREMENT RESULTS: Intervals: Rate: 65 NE: 144 QRSD: 98 QT: 396 QTc: 411 Peel: P: 74 NE: 144 QRS: 0 T: 52 INTERPRETIVE STATEMENTS: Normal sinus rhythm Normal ECG No previous ECG available for comparison Electronically Signed On 09-27-24 12:18:38 MARBLEIZING MACHINE TENDER by Juventino Smith
== END 2024-09-22 18:23 | disposition short-term general hospital (02) ==
LOC: ER 10:44
DX: K92.1 Melena (principal); D64.9 Anemia, unspecified; F17.210 Nicotine dependence, cigarettes, uncomplicated
CPT/HCPCS: 36415; 74177; 80053; 82607; 82728; 83690; 85025; 85044; 85610; 85730; 86850; 86900; 86901; 93005; 96365; 96366; 96375; 99285; J2270; J2470; J7050; Q9967